=== PATIENT | female | born 1980 | race African-American/Black ===

== ENCOUNTER 2016-10-25 10:39 | Emergency (ER) | payer OTHER | END 2016-10-25 12:38 | disposition home or self-care (01) | LOC: FER 10:39 | DX: S83.92XA Sprain of unspecified site of left knee, initial encounter (principal); F17.210 Nicotine dependence, cigarettes, uncomplicated; W19.XXXA Unspecified fall, initial encounter | CPT/HCPCS: 73564; 73590; 99283 ==

== ENCOUNTER 2016-11-02 09:12 | Emergency (ER) | payer OTHER | END 2016-11-02 10:53 | disposition home or self-care (01) | LOC: FER 09:12 | DX: J18.9 Pneumonia, unspecified organism (principal); F32.9 Major depressive disorder, single episode, unspecified; F17.210 Nicotine dependence, cigarettes, uncomplicated | CPT/HCPCS: 71020; J1885; J2930 ==